=== PATIENT | male | born 1990 | race African-American/Black ===

== ENCOUNTER 2024-04-28 10:22 | Emergency (ER) | payer SELFPAY ==
[~2024-04-28] VITALS: Ht 172.7 cm; Wt 80.0 kg
[2024-04-28 10:37] VITALS: BP 132/71; PULSE 70; RESP 16; TEMP 98.1
== END 2024-04-28 11:20 | disposition home or self-care (01) ==
LOC: EMS 10:22
DX: R04.0 Epistaxis (principal)
CPT/HCPCS: 99281; Z7502

== ENCOUNTER 2024-04-28 12:42 | Emergency (ER) | payer OTHER ==
[~2024-04-28] VITALS: Ht 170.2 cm; Wt 62.0 kg
[2024-04-28 12:43] VITALS: BP 132/84; PULSE 76; RESP 18; TEMP 98
[2024-04-28] MEDS: OXYMETAZOLINE HCL 0.05% 15 ML NASAL SPRAY NASAL ONE (13:08)
[2024-04-28] MEDS: SILVER NITRATE APPLICATOR 1 EA STICK TP ONE (13:08)
== END 2024-04-28 13:39 | disposition home or self-care (01) ==
LOC: EMS 12:43
DX: R04.0 Epistaxis (principal)
CPT/HCPCS: 30901; 99284; Z7502; Z7610